=== PATIENT | female | born 1985 | race Two or more races ===

== ENCOUNTER 2019-04-18 07:35 | Day surgery (SDC) | payer OTHER ==
[2019-04-18] VITALS (10 sets, daily range): BP systolic 104–117; BP diastolic 64–76
[~2019-04-18] VITALS: Ht 160 cm; Wt 45.8 kg
[~2019-04-18 07:35] MED LIST: LR 1000ml 1,000 ML IVLG SCH
[2019-04-18] MEDS ORDERED: Lidocaine 1% Plain 30 ml INJ ONE (08:02)
[2019-04-18] MEDS ORDERED: MAALOX MAXIMUM355 M1 PO (08:10)
[2019-04-18] MEDS ORDERED: FAMOTIDINE20 MG ORAL (08:10)
[2019-04-18] MEDS ORDERED: LR 1000ml ONE (09:00)
[2019-04-18] MEDS ORDERED: Propofol 200mg/20ml IV ONE (09:00)
[2019-04-18] MEDS ORDERED: LR 1000ml 1,000 ML IVLG SCH (09:06)
--- NOTE | 2019-04-18 09:14 | Anethesia Preoperative Eval ---
Anesthesia Pre-op PMH/ROS General Date of Evaluation: Apr 18, 2019 Time of Evaluation: 08:57 Anesthesiologist: Wilfred ASA Score: ASA 1 Mallampati Score Class I : Soft palate, uvula, fauces, pillars visible Class II: Soft palate, uvula, fauces visible Class III: Soft palate, base of uvula visible Class IV: Only hard plate visible Mallampati Classification: Class I Surgeon: Ama Diagnosis: GERD Surgical Procedure: EGD Anesthesia History: none Family History: no anesthesia problems Allergies: Coded Allergies: PENICILLINS (Verified Allergy, Unknown, RASHES, 04/18/19) Medications: see eMAR Patient NPO?: Yes Past Medical History Gastrointestinal/Genitourinary: Reports: GERD Neurologic/Psychiatric: Reports: other - Vertigo Anesthesia Pre-op Phys. Exam Physician Exam Last Vital Signs Date Time Temp Pulse Resp B/P (MAP) Pulse Ox O2 Delivery O2 Flow Rate FiO2 04/18/19 08:14 Room Air 04/18/19 08:10 97.0 92 18 111/76 100 Constitutional: NAD Neurologic: CN 2-12 intact Cardiovascular: RRR Respiratory: CTA Gastrointestinal: S/NT/ND Airway Exam Mallampati Score: Class I MO: full ROM: full Teeth: intact Anesthesia Pre-op A/P Labs Urine Test Test 04/18/19 07:50 Urine HCG, Qualitative Negative (NEGATIVE) Risk Assessment & Plan Assessment: ASA 1 Plan: TIVA Status Change Before Surgery: No Dave Hardin MD Apr 18, 2019 09:14
[2019-04-18] MEDS ORDERED: HYDROcodone/Acetamin 7.5/325 tab ORAL PRN (09:15)
[2019-04-18] MEDS ORDERED: Atropine Sulfate 0.4mg/ml inj IVP PRN (09:15)
[2019-04-18] MEDS ORDERED: DiphenhydrAMINE 50mg/ml Inj IVP PRN (09:15)
[2019-04-18] MEDS ORDERED: Metoclopramide 10mg/2ml Inj IVP PRN (09:15)
[2019-04-18] MEDS ORDERED: Hydromorphone 0.5mg/0.5ml inj IVP PRN (09:15)
[2019-04-18] MEDS ORDERED: fentaNYL 100 mcg/2 mL IV PRN (09:15)
[2019-04-18] MEDS ORDERED: LORazepam Inj 2mg/ml 1ml IV PRN (09:15)
[2019-04-18] MEDS ORDERED: Ketorolac 30mg Inj IV PRN ×2 (09:15)
[2019-04-18] MEDS ORDERED: HYDROcodone/Acetamin 5/325 tab ORAL PRN (09:15)
[2019-04-18] MEDS ORDERED: Midazolam 2mg/2ml Inj IVP PRN (09:15)
[2019-04-18] MEDS ORDERED: Meperidine 25mg/0.5ml Inj (FOR RIGORS ONLY) IV PRN (09:15)
[2019-04-18] MEDS ORDERED: Labetalol 5mg/ml 20ml vial IV PRN (09:15)
[2019-04-18] MEDS ORDERED: oxyCODONE HCL/Acetaminophen 5/325mg ORAL PRN (09:15)
--- NOTE | 2019-04-18 09:15 | Immediate Post-Op Evaluation ---
Immediate Post-Op Evalulation Immediate Post-Op Evalulation Procedure: EGD Date of Evaluation: Apr 18, 2019 Time of Evaluation: 09:59 IV Fluids: 700 LR Blood Products: 0 Estimated Blood Loss: 1 Urinary Output: 0 Blood Pressure Systolic: 113 Blood Pressure Diastolic: 75 Pulse Rate: 100 Respiratory Rate: 16 O2 Sat by Pulse Oximetry: 100 Temperature (Fahrenheit): 98.2 Pain Score (1-10): 1 Nausea: No Vomiting: No Complications 0 Patient Status: awake, reacts, patent, none Hydration Status: adequate Dave Hardin MD Apr 18, 2019 09:15
--- NOTE | 2019-04-18 09:16 | Short Stay Surgery H&P ---
History of Present Illness History of Present Illness Chief Complaint See typed H&P HPI Hoa Gutierres is a 33 year old female who was admitted on for Abdominal Pain Patient History Allergies: Coded Allergies: PENICILLINS (Verified Allergy, Unknown, RASHES, 04/18/19) Medication History Scheduled Famotidine* (Pepcid 20mg tablet*), 20 MG ORAL DAILY, (Reported) Mag Hydrox/Al Hydrox/Simeth (Maalox Maximum Strength Susp), 355 ML PO NEEDED, (Reported) Physical Exam Vital Signs Last Vital Signs Date Time Temp Pulse Resp B/P (MAP) Pulse Ox O2 Delivery O2 Flow Rate FiO2 04/18/19 08:14 Room Air 04/18/19 08:10 97.0 92 18 111/76 100 Labs Laboratory Tests Test 04/18/19 07:50 Urine HCG, Qualitative Negative (NEGATIVE) Plan Attestation Are the patient's medical conditions optimized for surgery? Efrem Serrato MD Apr 18, 2019 09:16
--- NOTE | 2019-04-18 09:16 | Pre-Procedure Note/Attestation ---
Pre-Procedure Note/Attestation Complete Prior to Procedure Planned Procedure: not applicable Procedure Narrative: EGD Indications for Procedure Pre-Operative Diagnosis: abd pain Attestation I attest that I discussed the nature of the procedure; its benefits; risks and complications; and alternatives (and the risks and benefits of such alternatives ), prior to the procedure, with the patient (or the patient's legal [employer] sales representative). I attest that, if there was a reasonable possibility of needing a blood transfusion, the patient (or the patient's legal [employer] sales representative) was given the [facility] standardized written summary, pursuant to the Lars Ronald Blood Safety Act ([place] Health and Safety Code # 1645, as amended). I attest that I re-evaluated the patient just prior to the surgery and that there has been no change in the patient's H&P, except as documented below: Efrem Serrato MD Apr 18, 2019 09:16
--- NOTE | 2019-04-18 09:16 | 48 Hour Post Anesthesia Eval ---
Post Anesthesia Evaluation Procedure: EGD Date of Evaluation: Apr 18, 2019 Time of Evaluation: 11:12 Blood Pressure Systolic: 112 0: 68 Pulse Rate: 93 Respiratory Rate: 18 Temperature (Fahrenheit): 98.6 O2 Sat by Pulse Oximetry: 100 Airway: patent Nausea: No Vomiting: No Pain Intensity: 1 Hydration Status: adequate Cardiopulmonary Status: Stable Mental Status/LOC: patient returned to baseline Follow-up Care/Observations: 0 Post-Anesthesia Complications: 0 Follow-up care needed: ready to discharge Dvae Hardin MD Apr 18, 2019 09:16
--- NOTE | 2019-04-18 10:20 | Endoscopy Procedure Note ---
Endoscopy Procedure Note General Indication for Procedure: abd pain Procedures Performed: EGD Operative Findings/Diagnosis: NL Specimen: yes Pt Tolerated Procedure Well: Yes Estimated Blood Loss: none Anesthesia Anesthesiologist: Anil Anesthesia: MAC Inserted Devices Implant(s) used?: No GI Core Measures 50 yrs or older w/o bx or poly: Not Applicable 10yrs. F/U recommended: Not Applicable Efrem Serrato MD Apr 18, 2019 10:20
--- NOTE | 2019-04-18 10:21 | Brief Operative Note ---
Immediate Post Operative Note Operative Note Chief Complaint: abd pain Pre-op Diagnosis: abd pain Procedure: esophagogastroduodenoscopy bx Post-op Diagnosis: nl Surgeon: cesia Specimen: yes Complications: none Condition: stable Fluids: Per Dr Ma Implant(s) used?: No Efrem Serrato MD Apr 18, 2019 10:21
--- NOTE | 2019-04-18 17:01 | Procedure Note ---
DATE OF PROCEDURE: 04/18/2019 GASTROENTEROLOGY PROCEDURE PROCEDURE: Upper gastrointestinal endoscopy with biopsy. SURGEON: Efrem Serrato M.D. ANESTHESIA: Please see the separate anesthesiologist notes for details. PRE-ENDOSCOPIC DIAGNOSIS: Abdominal pain. POST-ENDOSCOPIC DIAGNOSIS: Normal upper endoscopy, status post multiple biopsies. DESCRIPTION OF PROCEDURE: The procedure, its risks, indications, alternatives, and possible complications were explained and an informed consent was obtained. The patient was then sedated in the left lateral decubitus position and a diagnostic upper endoscope was introduced through the oropharynx and advanced to the duodenum. The mucosa was examined carefully as the endoscope was being withdrawn. No abnormalities were identified. Random biopsies of the duodenum, distal stomach, proximal stomach, and distal esophagus were sent to pathology for review. The endoscope was removed. The patient was sent to recovery in good condition. COMPLICATIONS: None. RECOMMENDATIONS: 1. Follow up biopsy results. 2. Outpatient followup. Efrem Serrato M.D. DR: DEEPTI JOB#: [id number] CC:
== END 2019-04-18 12:30 | disposition home or self-care (01) ==
LOC: GAS 07:35
DX: R10.9 Unspecified abdominal pain (principal); Z88.0 Allergy status to penicillin; K21.9 Gastro-esophageal reflux disease without esophagitis; K29.50 Unspecified chronic gastritis without bleeding
CPT/HCPCS: 43239; 81025; J2001; J2250; J2704; J7120; 94003; 94150